=== PATIENT | female | born 1970 | race Caucasian/White ===

== ENCOUNTER → 2019-08-03 | Outpatient (CLI) | payer BC | LOC: M LABSMTC 11:13 | PROVIDERS: ATTEND Anesthesiology | DX: Z01.818 Encounter for other preprocedural examination (principal); Z11.59 Encounter for screening for other viral diseases | CPT/HCPCS: C9803; U0003 ==

== ENCOUNTER 2019-08-06 07:47 | Day surgery (SDC) | payer BC ==
[~2019-08-06] VITALS: Ht 162.6 cm; Wt 59.9 kg
[~2019-08-06 07:47] MED LIST: NS 1,000 ML IV ONE
[2019-08-06] MEDS ORDERED: propofoL 200 MG/20 ML VIAL As Ordered ONE (08:58)
[2019-08-06] MEDS ORDERED: LIDOCAINE 2% 100MG/5ML SDV (FOR ANES.) As Ordered ONE (08:58)
--- NOTE | 2019-08-06 09:54 | ROOR ---
Patient Name: Sahra Boo Procedure Date: 08/06/2019 9:06 AM Date of : 1970 Age: 48 Room: [facility] Gender: Female Note Status: Finalized Procedure: Colonoscopy Indications: Screening for colorectal malignant neoplasm Providers: James Sultana MD Referring MD: TERRY Erickson Requesting Provider: Medicines: Monitored Anesthesia Care Complications: No immediate complications. Procedure: Pre-Anesthesia Assessment: - Prior to the procedure, a History and Physical was performed, and patient medications and allergies were reviewed. The patient is competent. The risks and benefits of the procedure and the sedation options and risks were discussed with the patient. All questions were answered and informed consent was obtained. Patient identification and proposed procedure were verified by the physician, the nurse and the anesthesiologist in the procedure room. Mental Status Examination: alert and oriented. Airway Examination: normal oropharyngeal airway and neck mobility. Respiratory Examination: clear to auscultation. CV Examination: normal. Prophylactic Antibiotics: The patient does not require prophylactic antibiotics. Prior Anticoagulants: The patient has taken no previous anticoagulant or antiplatelet agents. ASA Grade Assessment: II - A patient with mild systemic disease. After reviewing the risks and benefits, the patient was deemed in satisfactory condition to undergo the procedure. The anesthesia plan was to use monitored anesthesia care (MAC). Immediately prior to administration of medications, the patient was re-assessed for adequacy to receive sedatives. The heart rate, respiratory rate, oxygen saturations, blood pressure, adequacy of pulmonary ventilation, and response to care were monitored throughout the procedure. The physical status of the patient was re-assessed after the procedure. The Colonoscope was introduced through the anus and advanced to the terminal ileum, with identification of the appendiceal orifice and IC valve. The colonoscopy was performed without difficulty. The patient tolerated the procedure well. The quality of the bowel preparation was good. The ileocecal valve, appendiceal orifice, and rectum were photographed. Scope insertion time was 3 minutes. Scope withdrawal time was 9 minutes. The total duration of the procedure was 12 minutes. Findings: The perianal and digital rectal examinations were normal. The terminal ileum appeared normal. Two sessile polyps were found in the cecum. The polyps were 5 to 8 mm in size. These polyps were removed with a jumbo cold forceps. Resection and retrieval were complete. Verification of patient identification for the specimen was done by the physician and nurse using the patient's name, date and medical record number. Estimated blood loss was minimal. A 10 mm polyp was found in the transverse colon. The polyp was sessile. The polyp was removed with a cold snare. Resection and retrieval were complete. To close a defect after polypectomy, one hemostatic clip was successfully placed. There was no bleeding at the end of the procedure. Non-bleeding external and internal hemorrhoids were found during retroflexion. The hemorrhoids were medium-sized. Impression: - The examined portion of the ileum was normal. - Two 5 to 8 mm polyps in the cecum, removed with a jumbo cold forceps. Resected and retrieved. - One 10 mm polyp in the transverse colon, removed with a cold snare. Resected and retrieved. Clip was placed. - Non-bleeding external and internal hemorrhoids. Recommendation: - Patient has a contact number available for emergencies. The signs and symptoms of potential delayed complications were discussed with the patient. Return to normal activities tomorrow. Written discharge instructions were provided to the patient. - High fiber diet. - Continue present medications. - Await pathology results. - Repeat colonoscopy in 3 - 5 years for surveillance based on pathology results. - Telephone GI clinic for pathology results in 2 weeks. - Return to primary care physician. James Sultana MD James Sultana MD 08/06/2019 9:54:31 AM Electronically signed by James Sultana MD Number of Addenda: 0 Note Initiated On: 08/06/2019 9:06 AM Estimated Blood Loss: Estimated blood loss was minimal.
[2019-08-06 10:05] VITALS: BP 137/75
== END 2019-08-06 10:13 | disposition home or self-care (01) ==
LOC: M OPP 07:47
PROVIDERS: ATTEND Internal Medicine Gastroenterology
DX: Z12.11 Encounter for screening for malignant neoplasm of colon (principal); K63.5 Polyp of colon; K64.8 Other hemorrhoids; Z87.891 Personal history of nicotine dependence

== ENCOUNTER 2024-10-22 07:20 | Day surgery (SDC) | payer BC ==
[~2024-10-22] VITALS: Ht 162.6 cm; Wt 61.1 kg
[2024-10-22 08:34] VITALS: TEMP 96.8
[2024-10-22 08:47] VITALS: BP 117/73; O2SAT 100
== END 2024-10-22 08:56 | disposition home or self-care (01) ==
LOC: M OPP 07:20
PROVIDERS: ATTEND Internal Medicine Gastroenterology
DX: Z86.0101 Personal history of adenomatous and serrated colon polyps (principal)